=== PATIENT | female | born 2005 | race Caucasian/White ===

== ENCOUNTER 2023-09-10 13:16 | Observation (INO) | payer MEDICAID, SELFPAY ==
[2023-09-10] VITALS (7 sets, daily range): BP systolic 106–137; BP diastolic 54–84; PULSE 93–133; RESP 16–18; TEMP 36.4–36.9; O2SAT 98–100; BMI 22.1; BMI 22.3
--- NOTE | 2023-09-10 14:06 | EX.ED.SAOD ---
HPI History of Present Illness Chief Complaint: Substance Abuse Detail of Chief Complaint: Detox from cocaine and fentanyl Informant: patient Onset/Context/Timing Onset: Month(s) Context: Sudden Onset Timing: Continuous Quality: Daily use of fentanyl and cocaine/crack Location: Smokes Current Severity: Moderate Maximum Severity: Moderate Worsened by: Not applicable Associated Symptoms Associated Symptoms: Positive for tremor, palpatations, change in mental status, sex for drugs*, unknown and *HIV Risk Factors:Consider testing if last test > 6 months; Negative for vomiting*, diarrhea*, fever*, rash*, seizure or trauma Narrative Narrative: Patient is a 18-year-old. She admits to smoking fentanyl and crack cocaine. She last used crack cocaine last evening. She did fentanyl today. She does pick at her skin. She has no known history of hepatitis or HIV. She is at risk since she trade sexual favors for drugs. Prior similar symptoms: Yes Recent Illness/Hospitalization: No PFSH PFSH Home Medications buprenorphine 8 mg-naloxone 2 mg sublingual film 1 ea sublingual BID 09/10/23 [History Last Taken 09/05/23] melatonin 5 mg tablet 5 mg PO QHS 09/10/23 [History Last Taken 09/05/23] topiramate 50 mg tablet 50 mg PO DAILY 09/10/23 [History Last Taken 09/05/23] Allergy/AdvReac Type Severity Reaction Status Date / Time No Known Allergies Allergy Verified 09/10/23 13:17 Social History Smoking Status: Current every day smoker tobacco type: cigarettes ROS ROS ED Constitutional Constitutional ED: Reports weight loss; Denies chills, fever(s), subjective or sweats Eyes Eyes: Denies blurry vision, change in vision or diplopia ENT ENT ED: Denies ear pain, rhinorrhea or sore throat Cardiovascular Cardiovascular: Reports palpitations and racing heartbeat; Denies chest pain Respiratory/Chest Respiratory/Chest: Denies cough, dyspnea or dyspnea on exertion Gastrointestinal Gastrointestinal: Denies abdominal pain, diarrhea, nausea or vomiting Genitourinary Genitourinary ED: Denies dysuria or urinary frequency Musculoskeletal Musculoskeletal: Denies arthralgias, back pain or myalgias Integumentary Reports rash Neurologic Neurologic: Reports weakness Psychiatric Psychiatric: Reports depression Hematologic/Lymphatic Hematologic/Lymphatic: Denies easy bleeding or easy bruising EXAM Physical Exam Const Vital Signs: 09/10/23 13:17 09/10/23 14:16 Temperature 97.6 F L 98.2 F Temperature Source Temporal Oral Pulse Rate 133 H 107 H Respiratory Rate 18 18 Blood Pressure 111/78 137/71 H Blood Pressure Mean 89 93 Pulse Ox 98 99 Oxygen Delivery Method Room Air Room Air Positive well nourished and well developed General Appearance ED: well developed and pallor HEENT Reports dry mucous membranes HEENT Narrative: Head is normocephalic. Ears normal. Nares reveals a small pimple medial side of the right nares. atraumatic Mouth ED: Yes dry mucous membranes Mouth: dry mucous membranes Eyes PERRL and EOMs intact bilaterally General Eye ED: Negative for pale conjunctiva or scleral icterus Neck no lymphadenopathy, supple and no JVD Lymph Lymphatic: no lymphadenopathy noted and lymphadenopathy Chest Wall inspection of chest normal and palpation of chest normal Resp normal respiratory effort and clear to auscultation bilaterally Cardio regular rhythm, S1 normal heart sound, S2 normal heart sound and no murmurs Rate: tachycardic GI soft to palpation, non-tender, non-distended and no masses Back/Spine no CVA tenderness Neuro oriented x3 and CN's II-XII intact bilaterally [place] Coma Scale: document GCS findings To Voice Obeys Commands Oriented 14 Sensorium / Orientation: Negative for alert Motor Exam: strength 5/5 throughout Psych Mood & Affect: depressed Skin Skin Narrative: Patient has multiple scabs due to picking her skin. General Skin Exam: pallor; Negative for jaundice Lesions: No no lesions MDM MDM MDM Narrative Medical decision making narrative: Patient is tachycardic. Repeat vitals reveal that she is still tachycardic we will treat for withdrawal. This also may be due to the fact that she has done cocaine recently. Will obtain EKG for this reason. Appropriate blood work was ordered per the ED addiction medicine protocol. She will require admission. She is willing to stay. She understands the rules. Lab Data Attestation: I reviewed the patient's lab results. Lab results narrative: Comprehensive metabolic panel is unremarkable. Total bili stable at 1.2. Serum test is negative. Urine tox is pending. Labs: Laboratory Results - last 24 hr 09/10/23 09/10/23 14:25 14:50 Sodium 140 Potassium 3.9 Chloride 108 H Carbon Dioxide 27.0 Anion Gap 5 BUN 11 Creatinine 0.71 Estim Creat Clear Calc 109.14 Est GFR (MDRD) Af Amer 135 Est GFR (MDRD) Non-Af 111 BUN/Creatinine Ratio 15.5 Glucose 90 Calcium 9.0 Total Bilirubin 1.20 H AST 19 ALT 35 Alkaline Phosphatase 85 Total Protein 7.1 Albumin 3.6 Globulin 3.5 Albumin/Globulin Ratio 1.0 Serum , Qual NEGATIVE Urine Opiates Screen POSITIVE H Urine Methadone Screen NEGATIVE Ur Barbiturates Screen NEGATIVE Ur Phencyclidine Scrn NEGATIVE Ur Amphetamines Screen NEGATIVE MDMA (Ecstasy) Screen NEGATIVE U Benzodiazepines Scrn NEGATIVE Urine Cocaine Screen POSITIVE H U Cannabinoids Screen NEGATIVE Ur Drug Screen Comment Ethyl Alcohol < 3.0 EKG Initial EKG: Attestation: I personally reviewed and interpreted this EKG as follows: Interpretation: Sinus Tachycardia (Rate is 104. Other than the sinus tachycardia the EKG is normal. DC interval is 132 ms. QRS duration 82 ms. QT duration 342 ms. [place] is normal.) Treatment and Re-Evaluation Narrative: Pelvic exam reveals normal external genitalia. There may be some varicosities for the vagina. Blood is coming from the os. On bimanual exam uterus is approximately 1618 weeks size. The internal and external eyes are open. Will obtain ultrasound to determine if there is retained products of conception. Discharge Plan Triage Chief Complaint: Substance Abuse ED Provider: Steven Smith Dx/Rx/DC Orders Clinical Impression: Crack cocaine use, Fentanyl use disorder, moderate, dependence, Sinus tachycardia by electrocardiogram Prescriptions: No Action topiramate 50 mg tablet 50 mg PO DAILY melatonin 5 mg tablet 5 mg PO QHS buprenorphine-naloxone 8-2 mg film 1 ea sublingual BID Primary Care Provider: Care Physician,No Primary Referrals: Care Physician,No Primary [Primary Care Provider] - Disposition Disposition: Acute Care Hospital [facility]
--- NOTE | 2023-09-10 14:16 | EKG12_ITS ---
Test Reason : SUB ABUSE Blood Pressure : / mmHG Vent. Rate : 104 BPM Atrial Rate : 104 BPM P-R Int : 132 ms QRS Dur : 082 ms QT Int : 342 ms P-R-T Axes : 064 016 049 degrees QTc Int : 449 ms Sinus tachycardia Otherwise normal ECG Confirmed by ALIYAH FERNANDEZ, CANDELARIA ([id number]), editor department RAQUEL KAUFMAN ([id number]) on 09/17/2023 1:20:39 PM Referred By: Confirmed By:RENAN LY MD
[2023-09-10 14:44] LABS: Internal QC Validated? YES +Cl - CLEAR BKGD; Pregnancy, Serum, hCG Quali. NEGATIVE Negative
[2023-09-10 14:45] LABS: Record Kit Lot#, Serum Preg. HCG0000718086
[2023-09-10 14:53] LABS: AST(SGOT) 19 U/L (15-37); Alanine Aminotransfer ALT/SGPT 35 U/L (13-56); Albumin, Serum 3.6 g/dL (3.2-5.0); Alkaline Phosphatase 85 U/L (45-117); Anion Gap 5 (5-15); BUN 11 mg/dL (7-18); BUN/Creat Ratio 15.5 RATIO (10-20); Chloride 108 mmol/L (98-107); Creatinine, Serum 0.71 mg/dL (0.55-1.02); EST Glomerular Filtration Rate 111 mL/min (>60); Est Glom Filt Rate - Afr Amer 135 mL/min (>60); Estimated Creatinine Clearance 109.14 ml/min; Globulin 3.5 g/dL (2.2-4.2); Glucose 90 mg/dL (74-106); Potassium 3.9 mmol/L (3.5-5.1); Protein, Total 7.1 g/dL (6.4-8.2); Sodium Level 140 mmol/L (136-145)
[2023-09-10 15:02] LABS: Alcohol, Blood (Medical)-Serum < 3.0 mg/dL
[2023-09-10 15:13] LABS: Amphetamine Urine VISTA NEGATIVE (<1000 ng/mL); Barbiturate Urine VISTA NEGATIVE (< 200 ng/mL); Benzodiazepine Urine VISTA NEGATIVE (< 200 ng/mL); Cocaine Urine VISTA POSITIVE (< 300 ng/mL); Ecstacy Urine VISTA NEGATIVE (< 500 ng/mL); Methadone Urine VISTA NEGATIVE (< 300 ng/mL); PCP Urine VISTA NEGATIVE (< 25 ng/mL); THC Urine VISTA NEGATIVE (< 50 ng/mL); Vista UDS pH Range 8
--- NOTE | 2023-09-10 15:30 | HP.PCM.HOS_ITS ---
HPI - General General Date of Service: 09/10/23 Chief Complaint: Opiate withdrawal HPI Narrative MAUREEN NANCE, is a 18 F who presents seeking treatment for opiate withdrawal. Patient smokes fentanyl and last use was yesterday. Since then, patient has been experiencing withdrawal symptoms with restlessness, abdominal cramps and yawning. She is requesting treatment and would like to go into a program for further withdrawal therapy. Patient also admits to smoking crack daily. Does use methamphetamines on occasion. [facility] Home Medications buprenorphine 8 mg-naloxone 2 mg sublingual film 1 ea sublingual BID 09/10/23 [History Last Taken 09/05/23] melatonin 5 mg tablet 5 mg PO QHS 09/10/23 [History Last Taken 09/05/23] topiramate 50 mg tablet 50 mg PO DAILY 09/10/23 [History Last Taken 09/05/23] Allergy/AdvReac Type Severity Reaction Status Date / Time No Known Allergies Allergy Verified 09/10/23 13:17 Social History Smoking Status: Current every day smoker tobacco type: cigarettes ROS ROS Narrative Last menstrual period was months ago. Has lost several pounds over the past few months. All review of systems were negative except as mentioned above in the history of present illness and the other review of systems. Vital Signs Vital Signs Vital Signs: 09/10/23 13:17 09/10/23 14:16 Temperature 36.4 C L 36.8 C Temperature Source Temporal Oral Pulse Rate 133 H 107 H Respiratory Rate 18 18 Blood Pressure 111/78 137/71 H Blood Pressure Mean 89 93 Pulse Ox 98 99 Oxygen Delivery Method Room Air Room Air Weight Weight: 58.695 kg Body Mass Index (BMI) 22.1 Physical Exam Narrative Restless. Nontoxic. Const alert and no apparent distress HEENT normocephalic and head/scalp atraumatic Resp normal respiratory effort, no retractions, no use of accessory muscles and clear to auscultation bilaterally Cardio regular rate, regular rhythm, S1 normal heart sound and S2 normal heart sound GI normal to inspection, nondistended, normoactive bowel sounds, soft to palpation, non-tender and non-distended Extremity normal to inspection Neuro Sensorium / Orientation: awake and alert Results Lab / Micro Data 09/10/23 14:25 Labs: Laboratory Results - last 24 hr 09/10/23 14:25: Sodium 140, Potassium 3.9, Chloride 108 H, Carbon Dioxide 27.0, Anion Gap 5, BUN 11, Creatinine 0.71, Estim Creat Clear Calc 109.14, Est GFR (MDRD) Af Amer 135, Est GFR (MDRD) Non-Af 111, BUN/Creatinine Ratio 15.5, Glucose 90, Calcium 9.0, Total Bilirubin 1.20 H, AST 19, ALT 35, Alkaline [place] sphatase 85, Total Protein 7.1, Albumin 3.6, Globulin 3.5, Albumin/Globulin Ratio 1.0, Serum , Qual NEGATIVE, Ethyl Alcohol < 3.0 09/10/23 14:50: Urine Opiates Screen POSITIVE H, Urine Methadone Screen NEGATIVE, Ur Barbiturates Screen NEGATIVE, Ur Phencyclidine Scrn NEGATIVE, Ur Amphetamines Screen NEGATIVE, MDMA (Ecstasy) Screen NEGATIVE, U Benzodiazepines Scrn NEGATIVE, Urine Cocaine Screen POSITIVE H, U Cannabinoids Screen NEGATIVE, Ur Drug Screen Comment Assessment & Plan Assessment/Plan (1) Fentanyl use disorder, moderate, dependence: PLAN: Plan Acute opiate withdrawal * Last use was on the . * Patient smokes fentanyl * Initiate buprenorphine taper * Addiction medicine to see and facilitate outpatient program Crack cocaine abuse * Complicates care and recovery * Supportive management at this time. Avoid beta-blockers if has issues with tachycardia Weight loss * Unclear significance. It was reported the patient does self sexual services for drugs. Will check an HIV. VTE prophylaxis not indicated as patient is low risk. Charges/Coding Visit Charges Inpatient E&M: 52598 Init Hosp L2
[2023-09-10] MEDS: Dicyclomine 10 MG Capsule PO (16:23)
[2023-09-10] MEDS: LORazepam 0.5 MG Tablet PO (16:23)
[2023-09-10] MEDS: Buprenorphine HCl 2 MG TAB.SUBL 4 MG SL (18:09)
--- NOTE | 2023-09-10 18:12 | NURSING ---
pt scores 21 on withdrawal scale-started on suboxone taper when order placed
[2023-09-10] MEDS: Gabapentin 300 MG Capsule PO (18:25)
[2023-09-10] MEDS: Methocarbamol 750 MG Tablet PO (18:25)
[2023-09-10] MEDS: cloNIDine HCl 0.1 MG Tablet PO (18:25)
[2023-09-10] MEDS: Ondansetron 8 MG Tablet PO (18:25)
[2023-09-10 19:25] LABS: HIV - WCH Non-Reactive (Nonreactive)
[2023-09-10] MEDS: Ibuprofen 600 MG Tablet PO (20:57)
[2023-09-10] MEDS: traZODone 100 MG Tablet PO (20:58)
[2023-09-10] MEDS: Dicyclomine 10 MG Capsule 20 MG PO (20:58)
[2023-09-10] MEDS: hydrOXYzine PAM 25 MG Capsule 50 MG PO (20:58)
[2023-09-10] MEDS: MELATONIN 10 MG TABLET 5 MG PO (20:58)
[2023-09-11 01:05] VITALS: BP 102/42; PULSE 100; RESP 18; TEMP 36.6; O2SAT 100
[2023-09-11] MEDS: Buprenorphine HCl 2 MG TAB.SUBL 4 MG SL ×2 (01:09→09:46)
[2023-09-11 06:39] VITALS: BP 95/55; PULSE 92; RESP 16; TEMP 36.6; O2SAT 98
[2023-09-11 09:40] VITALS: BP 95/49; PULSE 86; RESP 16; TEMP 36.7; O2SAT 97
--- NOTE | 2023-09-11 09:40 | PN.HOSP_ITS ---
Reason for Visit Reason for Visit: Diagnoses Opioid dependence, uncomplicated (09/10/23) Objective Data Objective Data Vital Signs: Vital Signs Temp Pulse Resp BP Pulse Ox O2 Del Method 98 F 92 16 95/55 L 98 Room Air 09/11/23 06:39 09/11/23 06:39 09/11/23 06:39 09/11/23 06:39 09/11/23 06:39 09/11/23 06:39 Oxygen Delivery Method Room Air Weight: 130 lb Body Mass Index (BMI) 22.3 Lab / Micro Data 09/10/23 14:25 Labs: Laboratory Results - last 24 hr 09/10/23 14:25: Sodium 140, Potassium 3.9, Chloride 108 H, Carbon Dioxide 27.0, Anion Gap 5, BUN 11, Creatinine 0.71, Estim Creat Clear Calc 109.14, Est GFR (MDRD) Af Amer 135, Est GFR (MDRD) Non-Af 111, BUN/Creatinine Ratio 15.5, Glucose 90, Calcium 9.0, Total Bilirubin 1.20 H, AST 19, ALT 35, Alkaline Phosphatase 85, Total Protein 7.1, Albumin 3.6, Globulin 3.5, Albumin/Globulin Ratio 1.0, Serum , Qual NEGATIVE, Ethyl Alcohol < 3.0, HIV 1&2 Antibody Non-Reactive 09/10/23 14:50: Urine Opiates Screen POSITIVE H, Urine Methadone Screen NEGATIVE, Ur Barbiturates Screen NEGATIVE, Ur Phencyclidine Scrn NEGATIVE, Ur Amphetamines Screen NEGATIVE, MDMA (Ecstasy) Screen NEGATIVE, U Benzodiazepines Scrn NEGATIVE, Urine Cocaine Screen POSITIVE H, U Cannabinoids Screen NEGATIVE, Ur Drug Screen Comment Assessment & Plan Assessment/Plan (1) Fentanyl use disorder, moderate, dependence: PLAN: Plan Acute opiate withdrawal * Last use was on the . * Patient smokes fentanyl * Initiate buprenorphine taper * Addiction medicine to see and facilitate outpatient program Crack cocaine abuse * Complicates care and recovery * Supportive management at this time. Avoid beta-blockers if has issues with tachycardia Weight loss * Unclear significance. It was reported the patient does self sexual services for drugs. Will check an HIV. VTE prophylaxis not indicated as patient is low risk.
[2023-09-11] MEDS: hydrOXYzine PAM 25 MG Capsule 50 MG PO (09:46)
[2023-09-11] MEDS: Topiramate 50 MG Tablet PO (09:47)
--- NOTE | 2023-09-11 10:56 | ADDICTION ---
This science writer met with PT to conduct ASAM, MSE, AUDIT, DUDIT assessments and to plan for d/c. PT A+Ox4 and participated actively. All assessments completed. PT plans to f/u with [facility] for follow-up in patient treatment services this afternoon. [facility] will transport to treatment.
--- NOTE | 2023-09-11 11:36 | DCINST_ITS ---
Discharge Instructions Diet Discharge Diet: No restrictions Activity Discharge Activity: Return to Normal Activity Weight Bearing Status: Weight bearing as tolerated Dressing / Incision Call your doctor if you observe: Fever of 101 or Higher, Coldness, Increased Pain, Numbness or Tingling, Change in Color, Inability to urinate, Inability to have a bowel movement, Using more than 1 pad per hour, Shortness of breath, Dizziness, Fainting spells, Swelling in the ankles, Chest pain, Prolonged hiccupping, Increased palpitations (irregular heartbeat) and Calf discomfort Follow Up Care When: IN 2 WEEKS Test Results: Test results from this visit will be discussed in further detail at your follow- up appointment, if applicable. Discharge Plan Admission Admit Date/Time: 09/10/23 15:27 Primary Reason for Your Visit: Metoprolol withdrawal syndrome. Attending Provider: El Nguyen Primary Care Provider: Oanh Physician,No Primary Consulting Providers: Donnie Holland Discharge Orders/Prescriptions Prescriptions: Continued topiramate 50 mg tablet 50 mg PO DAILY melatonin 5 mg tablet 5 mg PO QHS buprenorphine-naloxone 8-2 mg film 1 ea sublingual BID Referrals / Follow Up: Care Physician,No Primary [Primary Care Provider] - Disposition Disposition (needs filled in before D/C Order can be placed): Inpatient Rehab Unit/Facility
--- NOTE | 2023-09-11 11:38 | DS.PCM_ITS ---
Providers Date of Admission: 09/10/23 Date of Discharge: 09/11/23 Primary Care Physician: No Primary Care Phys Reason For Visit: OPIATE WITHDRAWAL Diagnosis Discharge Diagnosis (1) Fentanyl use disorder, moderate, dependence: Status: Acute Code(s): F11.20 - Opioid dependence, uncomplicated Plan This is 18-year-old female being admitted for acute opioid withdrawal syndrome. Patient is stated that she used to get visual and auditory hallucination but seems the demon is out from her body. Restless and anxiety but not much withdrawal symptoms 1. Acute opioid withdrawal syndrome with history of chronic opioid use dependence and tolerance: [facility] the patient is started on buprenorphine along with other adjunctive medications as needed for medical stabilization as per order set of opioid withdrawal syndrome.Patient also on trazodone, hydroxyzine, gabapentin as needed ordered. Advised quitting opioid use. manager legal consult. Last use was on the . * Patient smokes fentanyl * Initiate buprenorphine taper * Patient was evaluated by rn case manager, Joss MOCTEZUMA and deemed appropriate for transfer to inpatient rehab for opioid substance use disorder. 2. Crack cocaine abuse * Complicates care and recovery * Supportive management at this time. Avoid beta-blockers if has issues with tachycardia Weight loss * Unclear significance. It was reported the patient does self sexual services for drugs. Will check an HIV. VTE prophylaxis not indicated as patient is low risk. Medications at Discharge Home Medications buprenorphine 8 mg-naloxone 2 mg sublingual film 1 ea sublingual BID 09/10/23 melatonin 5 mg tablet 5 mg PO QHS 09/10/23 topiramate 50 mg tablet 50 mg PO DAILY 09/10/23 Physical Exam Narrative Patient denies history of chronic hepatitis including viral hepatitis Physical exam General: Alert, Oriented x3, Cooperative HEENT: Atraumatic, PERRLA, EOMI, Normocephalic Oral: No Gingival or Mucosal Lesions/ Ulcerations Neck: Supple, No JVD, Negative Carotid Bruits Chest wall/Lungs: Air entry diminished in bilateral lung bases. No crepitation/rhonchi Cardiovascular: Regular rate, Regular Rhythm, Normal S1, Normal S2, No M/G/R Abdomen: Bowel Sounds Present, Soft, Non Tender, Non-Distended : No dysuria. No renal angle tenderness. No suprapubic tenderness. Extremities: No IV brower on lower or upper extremities. No edema, Capillary Refill Less than 3 Seconds Skin: No rashes, No breakdown Musculoskeletal: No Tenderness to Palpation of Joints or Extremities Neurological: Cranial nerves II-XII grossly intact, DTR 2+/4. No acute focal neurological deficit. Psych/Mental Status: Flat affect. History of hallucination, mild anxiety Weight / BMI Weight Weight: 130 lb Body Mass Index (BMI) 22.3 ABG / Lab / Microbiology Data 09/10/23 14:25 Laboratory: Laboratory Results - last 24 hr 09/10/23 14:25: Sodium 140, Potassium 3.9, Chloride 108 H, Carbon Dioxide 27.0, Anion Gap 5, BUN 11, Creatinine 0.71, Estim Creat Clear Calc 109.14, Est GFR (MDRD) Af Amer 135, Est GFR (MDRD) Non-Af 111, BUN/Creatinine Ratio 15.5, Glucose 90, Calcium 9.0, Total Bilirubin 1.20 H, AST 19, ALT 35, Alkaline Phosphatase 85, Total Protein 7.1, Albumin 3.6, Globulin 3.5, Albumin/Globulin Ratio 1.0, Serum , Qual NEGATIVE, Ethyl Alcohol < 3.0, HIV 1&2 Antibody Non-Reactive 09/10/23 14:50: Urine Opiates Screen POSITIVE H, Urine Methadone Screen NEGATIVE, Ur Barbiturates Screen NEGATIVE, Ur Phencyclidine Scrn NEGATIVE, Ur Amphetamines Screen NEGATIVE, MDMA (Ecstasy) Screen NEGATIVE, U Benzodiazepines Scrn NEGATIVE, Urine Cocaine Screen POSITIVE H, U Cannabinoids Screen NEGATIVE, Ur Drug Screen Comment D/C Instructions Discharge Diet: No restrictions Weight Bearing Status: Weight bearing as tolerated Call your doctor if you observe: Fever of 101 or Higher, Coldness, Increased Pain, Numbness or Tingling, Change in Color, Inability to urinate, Inability to have a bowel movement, Using more than 1 pad per hour, Shortness of breath, Dizziness, Fainting spells, Swelling in the ankles, Chest pain, Prolonged hiccupping, Increased palpitations (irregular heartbeat) and Calf discomfort When: IN 2 WEEKS Meaningful Use Info Meaningful Use Meaningful Use Diagnoses (Choose all that apply): None applicable Ischemic Stroke Statin Dosing Therapy Reference: STATIN DOSE THERAPY REFERENCE: * Patients > 75 years receive moderate or high dose statin therapy. * Patients 75 years or YOUNGER should receive HIGH intensity statin dose unless contraindicated. You will be required to document reason for non-treatment if statin daily dose does not meet guidelines. HIGH DOSE STATIN THERAPY DAILY Atorvastatin > than or = to 40 mg Rosuvastatin > than or = to 20 mg Amlodipine + Atorvastatin > than or = to 2.5/40 mg Ezetimibe + Simvastatin 10/80 mg Simvastatin 80mg Discharge Plan Admission Admit Date/Time: 09/10/23 15:27 Primary Reason for Your Visit: Metoprolol withdrawal syndrome. Attending Provider: El Nguyen Primary Care Provider: Care Physician,No Primary Consulting Providers: Donnie Holland Discharge Orders/Prescriptions Prescriptions: Continued topiramate 50 mg tablet 50 mg PO DAILY melatonin 5 mg tablet 5 mg PO QHS buprenorphine-naloxone 8-2 mg film 1 ea sublingual BID Referrals / Follow Up: Care Physician,No Primary [Primary Care Provider] - Disposition Disposition (needs filled in before D/C Order can be placed): Home, Self Care Charges/Coding Visit Charges Inpatient E&M: 22710 Disch Hosp >30min
--- NOTE | 2023-09-11 11:43 | PHA.DC.MR.R ---
Pharmacy [place] Med Reconciliation Pharmacy Service has performed discharge medication reconciliation for this patient. The patient's discharge medication list was reviewed for discrepancies and discrepancies were resolved. Medications at Discharge Home Medications buprenorphine 8 mg-naloxone 2 mg sublingual film 1 ea sublingual BID 09/10/23 melatonin 5 mg tablet 5 mg PO QHS 09/10/23 topiramate 50 mg tablet 50 mg PO DAILY 09/10/23
--- NOTE | 2023-09-11 12:51 | CHAPLAIN ---
Type of Pastoral Visit _x__ Initial Visit ___ Follow-up Visit ___ On-call Visit ___ General Patient Visit ___ Spiritual Assessment ___ Family Conference ___ Bereavement ___ Rapid Response ___ Code Blue ___ Other (describe below) Pastoral Care Referral From _x__ Patient ___ Family ___ Nurse ___ Physician ___ Nurse Auditor ___ Supervisor Heat Treating ___ Other (describe below) Sacrament/Intervention _x__ Active listening ___ Anointing ___ Worship ___ Bereavement ___ Communion _x__ Mirlande exploration ___ _x__ Life review _x__ Prayer ___ Reconciliation ___ Sacrament of Sick _x__ Supportive presence ___ Wedding ___ Other (describe below) Pastoral Comments patient is awake and alert; pt states that she wanted to talk about the voices that she was hearing when she was taking drugs and the spiritual meaning behind the voices; pt admits to some fears about the spirit world and her involvement with it through drugs; pt states that she will have support when she comes out of rehab; pt is open to spiritual help and asks for prayer against the voices and spirits;
== END 2023-09-11 12:43 | disposition home or self-care (01) | DRG 773 ==
LOC: ED 15:13 → MS3 17:39
PROVIDERS: Emergency Provider Emergency Medicine; Visit Provider Internal Medicine
DX: F11.23 Opioid dependence with withdrawal (principal); F14.10 Cocaine abuse, uncomplicated; F17.210 Nicotine dependence, cigarettes, uncomplicated; Z79.899 Other long term (current) drug therapy
CPT/HCPCS: 80053; 80307; 80320; 84703; 86703; 93005; 99221; 99283; G0378; G0480